=== PATIENT | male | born 1975 | race Caucasian/White ===

== ENCOUNTER 2018-02-13 17:13 | Emergency (ER) | payer OTHER ==
[~2018-02-13] VITALS: Ht 182.9 cm; Wt 117.9 kg
[2018-02-13 18:27] VITALS: BP 127/89
== END 2018-02-13 18:29 | disposition home or self-care (01) ==
LOC: M.ERS 17:13
DX: S63.276A Dislocation of unspecified interphalangeal joint of right little finger, initial encounter (principal); S63.272A Dislocation of unspecified interphalangeal joint of right middle finger, initial encounter; W18.39XA Other fall on same level, initial encounter; Y93.89 Activity, other specified; Y92.89 Other specified places as the place of occurrence of the external cause; Y99.8 Other external cause status